=== PATIENT | female | born 1945 | race Asian ===

== ENCOUNTER 2022-02-24 15:50 | Emergency (ER) | payer OTHER ==
[~2022-02-24] VITALS: Ht 162.6 cm; Wt 68.5 kg
[2022-02-24 16:34] LABS: PLATELET COUNT 268 K/uL (152-353)
[2022-02-24 16:38] LABS: POTASSIUM 3.9 mmol/L (3.6-5.2)
[2022-02-24 17:04] VITALS: BP 181/79; TEMP 97.8
[2022-02-24] MEDS ORDERED: FEVERALL ADULT650 MG PR (18:55)
[2022-02-24] MEDS ORDERED: TYLENOL325 MG PO (18:57)
[2022-02-24] MEDS ORDERED: BAYER ASPIRIN E81 MG PO (18:58)
[2022-02-24] MEDS ORDERED: LIPITOR40 MG PO (18:59)
[2022-02-24] MEDS ORDERED: ENSURE PO (19:04)
[2022-02-24] MEDS ORDERED: EUCERIN INTENSI TOP (19:06)
[2022-02-24] MEDS ORDERED: FLUTICASON50 MCG/AC1 NAS (19:07)
[2022-02-24] MEDS ORDERED: GABA400C2 PO (19:09)
[2022-02-24] MEDS ORDERED: GERI-LANTA PO (19:11)
[2022-02-24] MEDS ORDERED: LATA0.00 OPTH (19:14)
[2022-02-24] MEDS ORDERED: METO50TA27 PO (19:15)
[2022-02-24] MEDS ORDERED: MAGNSUS68 PO (19:20)
[2022-02-24] MEDS ORDERED: AMLODIPINE BESYLATE PO (19:35)
[2022-02-24] MEDS ORDERED: OMEPRAZOLE DR20 MG PO (19:35)
[2022-02-24] MEDS ORDERED: PROAIR HFA108 MCG/AC INH (19:37)
[2022-02-24] MEDS ORDERED: SENNA PLUS 50-81 CAP PO (19:39)
[2022-02-24] MEDS ORDERED: SPIRONOLACT25 MG PO (19:40)
[2022-02-24] MEDS ORDERED: TIMOLOL MAL0.5 % OPTH (19:44)
[2022-02-24] MEDS ORDERED: TRAMADOL HYDROC50 MG PO (19:45)
[2022-02-24] MEDS ORDERED: GUAIFENESIN/DEX1 LI2 PO (19:48)
[2022-02-24] MEDS ORDERED: GABA300C2 PO (19:49)
== END 2022-02-24 17:07 | disposition still patient (30) ==
LOC: ED 15:50 → EDBD 15:50 → ED 17:07
PROVIDERS: Hospitalist
DX: F32.89 Other specified depressive episodes (principal); R45.851 Suicidal ideations; Z11.52 Encounter for screening for COVID-19; Z04.6 Encounter for general psychiatric examination, requested by authority
CPT/HCPCS: 80053; 85027; 87635; 93005; 99283; U0003